=== PATIENT | male | born 1950 | race Caucasian/White ===

== ENCOUNTER 2016-08-25 07:29 | Observation (INO) | payer MEDICAID, MEDICARE ==
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
[~2016-08-25 07:29] MED LIST: Buffered Lidocaine 1% SYRIN* 3 ML/SYR SYRINGE INTRADERM ONE
[2016-08-25] MEDS ORDERED: ceFAZolin 2 GM PREMIX(*) 2 GM/50 ML BAG IVPB ONE ×2 (07:31)
[2016-08-25] MEDS ORDERED: Heparin VIAL(*) 5000 UNITS/ML VIAL (FIVE THOUSAND) ONE ×2 (07:31)
[2016-08-25] MEDS ORDERED: Midazolam* 1 MG/ML 2 ML VIAL (2 MG) ONE ×2 (09:07)
[2016-08-25] MEDS ORDERED: fentaNYL* 50 MCG/ML 2 ML VIAL (100 MCG VIAL) ONE ×6 (09:07→14:46)
[2016-08-25] MEDS ORDERED: Bupivacaine 0.5% W/EPI SDV* 30 ML VIAL ONE ×2 (09:30)
[2016-08-25] MEDS ORDERED: Lidocaine 1% INJ* 10 MG/ML 30 ML SDV ONE ×2 (09:30)
[2016-08-25] MEDS ORDERED: Cisatracurium* 2 MG/ML MDV 5 ML ONE ×2 (10:12)
[2016-08-25] MEDS ORDERED: Dexamethasone IV* 4 MG/ML 1 ML (4 MG) ONE ×2 (10:19)
[2016-08-25] MEDS ORDERED: Propofol* 10 MG/ML 20 ML BTL IV PUSH ONE ×2 (10:19)
[2016-08-25] MEDS ORDERED: Etomidate* 2 MG/ML 10 ML VIAL ONE ×2 (10:19)
[2016-08-25] MEDS ORDERED: Lidocaine 2% PF * 5 ML VIAL ONE ×2 (10:19)
[2016-08-25] MEDS ORDERED: Ondansetron INJ* 2 MG/ML VIAL ONE ×2 (10:19)
[2016-08-25] MEDS ORDERED: Succinylcholine* 20 MG/ML 10 ML VIAL ONE ×2 (10:19)
[2016-08-25] MEDS ORDERED: oxyCODONE/Acetamin 5/325 MG* TAB PO PRN (11:10)
[2016-08-25] MEDS ORDERED: Metoclopramide IV* 5 MG/ML 2 ML VIAL IV PRN (11:10)
[2016-08-25] MEDS ORDERED: HYDROmorphone* 1 MG/ML 1 ML SYR IV PRN (13:21)
[2016-08-25] MEDS ORDERED: Acetaminophen TAB* 325 MG PO PRN (13:21)
[2016-08-25] MEDS ORDERED: Docusate CAP* 100 MG PO PRN (13:21)
[2016-08-25] MEDS ORDERED: Ondansetron INJ* 2 MG/ML VIAL IV PRN (13:21)
[2016-08-25] MEDS ORDERED: HYDROmorphone* 1 MG/ML 1 ML SYR ONE ×2 (14:46)
[2016-08-25] MEDS: fentaNYL* 50 MCG/ML 2 ML VIAL (100 MCG VIAL) IV PRN ×3 (14:49→15:08)
[2016-08-25] MEDS: HYDROmorphone* 1 MG/ML 1 ML SYR IV PRN ×3 (14:50→15:09)
[2016-08-25] MEDS: oxyCODONE/Acetamin 5/325 MG* TAB PO PRN (20:04)
--- NOTE | 2016-08-26 06:25 | OP ---
DATE OF OPERATION: 08/25/16 - ROOM #333 DATE OF : 54 SURGEON: Teo Dobbs MD. CONTROL TOWER RADIO OPERATOR: GAYLE Kee. ANESTHESIOLOGIST: Es Rosas MD ANESTHESIA: General with local. PRE-OP DIAGNOSIS: Large left inguinal scrotal hernia, incarcerated. POST-OP DIAGNOSIS: Large incarcerated direct inguinal scrotal hernia. OPERATIVE PROCEDURE: Open repair with mesh of an incarcerated large left direct inguinal scrotal hernia. ESTIMATED BLOOD LOSS: Minimal. IV FLUIDS: 1.5 L of crystalloid. WOUND CLASSIFICATION: I. COMPLICATIONS: None. SPECIMENS: Portion of hernia sac. DRAINS: None. BRIEF HISTORY: Mr. Slade Yañez is a 66-year-old gentleman who has had a longstanding large left inguinal hernia extending down into the scrotum. He is now presenting for an elective repair. He had been cleared from a cardiac standpoint. The risks of, but not limited to , were all included and discussed with the patient and his partner in the preoperatively transcribed history and physical. Emphasized in the office was a higher risk of recurrence, problems with seroma and fluid collection into the scrotum, possibility of injury to the testicle, chronic groin pain, possibility that due to the large amount of possible intestine within the inguinal hernia, that reduction into the abdominal cavity may result in difficulty breathing, which may require further surgical intervention, i.e., laparotomy, were all discussed. DESCRIPTION OF PROCEDURE: Written informed consent was obtained. The left groin was marked with indelible ink and preoperative antibiotics were administered. The patient was taken to the operating room and placed in the supine position. Sequential compression devices and warming blanket were applied. General anesthesia was administered. A Ruiz catheter was inserted. The genitalia, groin, and upper thighs were prepped with Betadine. The upper abdomen was prepped entirely with chlorhexidine. The entire area was draped within the field and the overlying drape; however, it only encompassed the left groin for a typical hernia but we were prepared to manipulate the scrotum as well as possible entry into the abdominal cavity should we not be able to reduce the hernia or should there be other procedure needed to be performed. It should be noted that after the patient had been placed under general anesthesia, prior to making the initial incision, I was able to reduce the hernia successfully. Time-out verification was completed. An oblique incision was made several fingerbreadths above the inguinal crease, carried down through Bakari's fascia. We identified the external oblique aponeurosis, it was obvious a rather large hernia extending out through the external ring. The aponeurosis was opened in the direction of its fibers and we were able to encircle the cord structures and the hernia at the pubic tubercle with a 1/4-inch Judy drain. The external oblique aponeurosis was reflected more superiorly, exposing the conjoint tendon as well as the inguinal ligament inferiorly. We were able to then identify the spermatic cord and its contents and we did identify the ilioinguinal nerve. It appeared to be quite adherent to the hernia sac and I did sacrifice this nerve by dividing it as far lateral as possible in the musculature and far down in towards the scrotum. We were then able to identify and separate a very large inguinal hernia sac from the remainder of the spermatic cord. This reduced up nicely from below into the scrotum and we were able to follow this up into the direct space. This appeared to be a rather large direct space hernia. The vas deferens and the spermatic cord was identified and protected from injury throughout. There was a lipoma of the cord, which was from the cord structures up into the internal ring and divided. The internal ring did not appear to be patulous, it was of essentially normal caliber. Conjoint tendon also was of suitable strength and size. Decision was then made for repair. There was really no inguinal floor in the direct space and it was a rather large hernia sac. I was able to separate this and enter the preperitoneal space circumferentially around the base of the hernia sac and I was able to expose the pubic tubercle and Steve's ligament medially and as we were able to reduce the hernia sac, develop the preperitoneal space superiorly up underneath the musculature as well as laterally. I was able to identify the epigastric vessels and these were kept anteriorly and developed the peritoneal space with both a combination of blunt and sharp dissection out almost to the anterior iliac crest. I was able to identify the vas deferens as it came and entered the internal ring and this was kept posterior, so to speak, inferior to the mesh placement. Once this had been completed, the hernia sac was opened and I excised a significant portion of the redundant sac and this was closed with a pursestring 3-0 Polysorb suture and then placed back into the abdominal cavity. Next, with this preperitoneal space developed nicely, an extended sized Prolene hernia system mesh was then placed with the posterior leaf covering the tubercle and Steve's ligament medially and placed over the spermatic cord as it entered the internal ring intraabdominally underneath the musculature laterally as well as superiorly to cover the direst space. I tacked this using the CapSure device to the Steve's ligament as well and it covered nicely without wrinkling and I sutured the posterior portion of mesh as well to the inguinal ligament inferiorly at the shelving edge with several interrupted 3-0 Polysorb sutures. The anterior leaf of the mesh was then sutured to the pubic tubercle medially, the conjoint tendon superiorly, and the inguinal ligament inferiorly, and a slit was made laterally to permit the cord to exit the mesh into the internal ring. The mesh was then sutured to the musculature laterally with several interrupted 0 Polysorb sutures. The mesh seemed to cover nicely with no tension and it was secured. Hemostasis was assured. Additional Marcaine was infiltrated. The external oblique aponeurosis was closed with a running 0 Polysorb suture. Bakari's fascia was closed with interrupted 3-0 Polysorb suture. The skin was approximated with subcuticular 4-0 Polysorb suture. Steri-Strips and sterile dressings were applied. After the dressing was applied, the scrotum was evaluated, both testicles were in their expected position. No other abnormality noted. In addition, I was in the room as the patient was extubated. We were able to observe airway pressures and tidal volumes. At the completion of the case, he seemed to do well, breathing on his own with no significant evidence of increased intraabdominal pressure that may be expected with the loss of domain and he was taken to the recovery room in stable condition. CC: [facility]; JANELLE Ching, of [facility].* [id number]/CPS #: [id number] MTDD
[2016-08-26] MEDS: oxyCODONE/Acetamin 5/325 MG* TAB PO PRN (06:29)
[2016-08-26] MEDS ORDERED: Lisinopril TAB* 5 MG PO SCH (09:00)
[2016-08-26] MEDS ORDERED: Metoprolol Succinate XL TAB* 25 MG PO SCH ×2 (09:00→10:00)
--- NOTE | 2016-08-26 09:00 | PN ---
Progress Note - Progress Note SOAP: Subjective: Doing well Tolerating po without N/V Minimal incisional pain Urinating with catheter out Objective: Temp Pulse Resp BP Pulse Ox 97.6 F 78 18 102/64 92 08/26/16 07:43 08/26/16 07:43 08/26/16 07:43 08/26/16 07:43 08/26/16 07:43 Intake & Output 08/24/16 08/25/16 08/26/16 08/27/16 06:59 06:59 06:59 06:59 Intake Total 2200 Output Total 2525 Balance -325 Weight 149 lb 9.6 oz Intake: IV Fluids 1200 lr 1200 Oral 1000 Output: Ruiz 2525 Other: Estimated Blood Loss min Comment PEX: COmfortable Lungs are clear, breathing comfortably Abd is soft and slightly distended. Bowel sounds are present. Dressing left groin intact with minimal swelling. Scrotum without edema or hematoma-supporter in place. Assessment: POD#1 s/p repair of large left inguinalscrotal hernia with mesh Doing well with no signs of increased abdominal pressure. Plan: Ruiz out Advance diet D/C home today.
[2016-08-26 12:34] VITALS: BP 98/56
--- NOTE | 2016-08-28 11:17 | DS ---
CC: [facility] [employer]DROCHL[employer] OPERATOR; Gio Nance NP DATE OF ADMISSION: 08/25/2016. DATE OF DISCHARGE: 08/26/2016. DATE OF DICTATION: 08/28/2016. PRINCIPAL DIAGNOSIS: Large left inguinal scrotal hernia. PROCEDURE: Open repair of a large direct inguinal scrotal hernia with mesh. CONDITION ON DISCHARGE: Good. DISPOSITION: To home. HISTORY OF PRESENT ILLNESS: Mr. Slade Yañez is a 66-year-old gentleman who had a long-standing large left inguinal scrotal hernia extending with a large amount of bowel down into the scrotum, whi ch was not able to be reduced. After medical evaluation and review of his physical and history, he was planned for an elective open repair of his left inguinal hernia. Plans were for admission postoperatively due to the fact that there was concern for possible loss of domain and he needed observation, as well as planned analgesia. HOSPITAL COURSE: The patient presented on the morning of admission and underwent an uneventful open left direct inguinal hernia repair with mesh and was placed in the preperitoneal position through a n open approach. He did well and postoperatively had no problems with abdominal pressures or respir atory issues from possible compartment syndrome. He was observed on the regular nursing floor. t was advanced as tolerated. On postop day number one, he was tolerating liquids. His pain was adequately controlled. Abdomen w as soft and nondistended. He had no nausea or vomiting and was discharge home with appropriate surg ical follow-up. [id number]/[facility] [place] #: [id number]
== END 2016-08-26 13:00 | disposition home or self-care (01) ==
LOC: OR 07:29 → SSU 15:29
PROVIDERS: ADMIT Surgery; ATTEND Surgery
DX: K40.30 Unilateral inguinal hernia, with obstruction, without gangrene, not specified as recurrent (principal)
CPT/HCPCS: 88302; 96374; A9270-GY; C1781; G0378; J0330; J0690; J1100; J1170; J1644; J2001; J2250; J2405; J2704; J3010

== ENCOUNTER 2024-01-20 14:34 | Inpatient (IN) ==
[2024-01-20] MEDS: Lactated Ringers 1000 ml BAG 1,000 ML IV ONE ×2 (16:20→21:07)
[2024-01-20 16:42] LABS: ABS Basophils 0.1 10^3/uL (0.0-0.1); ABS Eosinophils 0.1 10^3/uL (0.0-0.5); ABS Lymphocytes 1.3 10^3/uL (1.0-4.8); ABS Monocytes 1.2 10^3/uL (0.0-1.1); ABS Neutrophils 18.3 10^3/uL (1.5-7.6); ABS Nucleated RBC 0.01 10^3/ul; Eosinophil % 0.3 %; Hematocrit 33.1 % (38-53); Hemoglobin 10.7 g/dL (13.2-16.3); Lymphocyte % 6.2 %; Mean Corpuscular Hemoglobin 24.8 pg (27-33); Mean Corpuscular Hgb Conc 32.2 g/dL (31-36); Mean Corpuscular Volume 77.2 fL (80-97); Mean Platelet Volume 6.7 fL (7.5-11.2); Platelet Count 503 10^3/uL (150-450); Red Blood Count 4.29 10^6/uL (4.06-5.63); Red Cell Distribution Width 16.7 % (12-17)
[2024-01-20 16:58] LABS: Activated Partial Thrombo Time 28.1 seconds (26.0-38.0); INR 1.09 (0.85-1.14)
[2024-01-20 17:10] LABS: C Reactive Protein 86.27 mg/L (<8.01); Calcium 9.2 mg/dL (8.6-10.3); Creatinine, Serum 0.66 mg/dL (0.67-1.17); Globulin 3.1 g/dL (2-4); Potassium 4.9 mmol/L (3.5-5.0); Total Bilirubin 0.6 mg/dL (0.2-1.0); Total Protein 6.1 g/dL (6.4-8.9); eGFR CKD-EPI 100.3 (>60)
[2024-01-20] MEDS ORDERED: Vancomycin 1,000 MG BAG/ADDV ONE (17:20)
[2024-01-20] MEDS: Piperacillin/Tazobac 3.375 BAG 3.375 GM/100 ML BAG IV ONE (17:39)
[2024-01-20 18:21] LABS: High Sensitivity Troponin 1 Hr 8 pg/mL (<20)
[2024-01-20] MEDS: Iohexol 350 (CONTRAST) 500 ML MDV IV ONE (18:32)
[2024-01-20] MEDS: Vancomycin 1,000 MG in NS 0.9% 250 ml 250 ML IVPB ONE (18:47)
[2024-01-20 21:51] LABS: Urine Appearance Extra Turbid; Urine Bilirubin Negative (Negative); Urine Blood Trace (Negative); Urine Glucose Negative (Negative); Urine Ketones Negative (Negative); Urine Nitrite 2+ (Negative); Urine Protein 1+ (>=30 mg/dL) (Negative); Urine Specific Gravity 1.034 (1.002-1.030); Urine Urobilinogen 1+ (Negative)
[2024-01-20 21:57] LABS: Urine Amorphous Crystals Present /HPF (Absent); Urine Bacteria 2+ /HPF (Absent); Urine Color Yellow; Urine Red Blood Cell 1+(3-5/hpf) /HPF (0-Trace); Urine White Blood Cell 3+(>20/hpf) /HPF (0-Trace)
[2024-01-20] MEDS: Lactated Ringers 1000 ml BAG 1,000 ML IV SCH (22:53)
[2024-01-20] MEDS ORDERED: Zosyn per Pharmacy NOTE FOLLOW UP SCH (23:45)
[2024-01-21] MEDS: Zosyn 3.375 GM IV - ED ONCE IV ONE (01:10)
[2024-01-21] MEDS: Enoxaparin 40 MG/0.4 ML SYR SUBCUT SCH ×2 (06:16→08:05)
[2024-01-21] MEDS: ZOSYN 3.375 GM Q8H per EXTENDED INFUSION IV SCH (06:19)
[2024-01-21] MEDS: cefTRIAXone 1 gm/50 mL D5W 1 GM/50 ML BAG IV SCH (11:30)
[2024-01-21] MEDS ORDERED: Nicotine GUM 2MG FRUIT FLAVOR PO PRN (11:47)
[2024-01-21 12:26] LABS: Urine Benzodiazepine Screen None Detected (None Detect); Urine Cannabinoids Screen None Detected (None Detect); Urine Opiates Screen None Detected (None Detect)
[2024-01-21] MEDS: Nicotine PATCH 14 MG/24 HR PATCH TRANSDERM SCH (12:55)
[2024-01-21 16:14] LABS: ABS Basophils 0.1 10^3/uL (0.0-0.1); ABS Eosinophils 0.2 10^3/uL (0.0-0.5); ABS Lymphocytes 1.3 10^3/uL (1.0-4.8); ABS Monocytes 0.6 10^3/uL (0.0-1.1); ABS Neutrophils 10.1 10^3/uL (1.5-7.6); Eosinophil % 1.3 %; Hemoglobin 9.3 g/dL (13.2-16.3); Lymphocyte % 10.7 %; Mean Corpuscular Hemoglobin 25.5 pg (27-33); Mean Corpuscular Hgb Conc 33.1 g/dL (31-36); Mean Corpuscular Volume 77.1 fL (80-97); Mean Platelet Volume 6.6 fL (7.5-11.2); Platelet Count 405 10^3/uL (150-450); Red Blood Count 3.64 10^6/uL (4.06-5.63); Red Cell Distribution Width 16.5 % (12-17); White Blood Count 12.2 10^3/uL (3.6-10.2)
[2024-01-21 17:02] LABS: % Iron Saturation 10 % (15-55); .Transferrin 141 mg/dL (203-362); Anion Gap 7 mmol/L (2-16); Blood Urea Nitrogen 13 mg/dL (6-24); CO2 Carbon Dioxide 27 mmol/L (22-32); Chloride 102 mmol/L (101-111); Creatinine, Serum 0.85 mg/dL (0.67-1.17); Glucose 103 mg/dL (70-100); Iron < 20 ug/dL (50-212); Magnesium 2.2 mg/dL (1.9-2.7); Potassium 3.9 mmol/L (3.5-5.0); Sodium 136 mmol/L (135-145); Total Iron Binding Capacity 197 mcg/dL (250-450); Unsaturated Iron Binding 177 ug/dL; eGFR CKD-EPI 92.9 (>60)
[2024-01-21 17:10] LABS: PSA Screen Ultra Sensitive 2.199 ng/mL (0-4.000)
[2024-01-21 17:11] LABS: TSH Ultra Thyroid Stim Horm 5.45 mcIU/mL (0.34-5.60)
[2024-01-21 17:19] LABS: Ferritin 274.8 ng/mL (24-336)
[2024-01-21 17:22] LABS: Folate 6.65 ng/mL (5.90-24.80)
[2024-01-21 17:23] LABS: Vitamin B12 151 pg/mL (180-914)
[2024-01-21 19:39] LABS: Carcinoembryonic Antigen 2.4 ng/mL (0.1-5.0)
[2024-01-21] MEDS: PEG 3000 GI LAVAGE 1 GALLON PO ONE (20:08)
[2024-01-21] MEDS: Cyanocobalamin INJ 1,000 MCG/ML VIAL 1 ML VIAL IM SCH (20:09)
[2024-01-22 07:51] LABS: Hematocrit 28.2 % (38-53); Hemoglobin 9.5 g/dL (13.2-16.3); Mean Corpuscular Hemoglobin 25.9 pg (27-33); Mean Corpuscular Hgb Conc 33.8 g/dL (31-36); Mean Corpuscular Volume 76.7 fL (80-97); Mean Platelet Volume 6.6 fL (7.5-11.2); Platelet Count 403 10^3/uL (150-450); Red Blood Count 3.68 10^6/uL (4.06-5.63); Red Cell Distribution Width 16.4 % (12-17); White Blood Count 10.8 10^3/uL (3.6-10.2)
[2024-01-22 08:15] LABS: Calcium 8.3 mg/dL (8.6-10.3); Creatinine, Serum 0.65 mg/dL (0.67-1.17); Magnesium 2.2 mg/dL (1.9-2.7); eGFR CKD-EPI 100.7 (>60)
[2024-01-22] MEDS ORDERED: Phenylephrine 40 mcg/mL 10mL (400mcg) SYRINGE ONE ×2 (11:44→11:57)
[2024-01-22] MEDS: cefTRIAXone 1 gm/50 mL D5W 1 GM/50 ML BAG IV SCH (14:19)
[2024-01-22] MEDS: Lactated Ringers 1000 ml BAG 1,000 ML IV SCH (14:20)
[2024-01-22] MEDS: Nicotine PATCH 21 MG/24 HR PATCH TRANSDERM SCH (14:29)
[2024-01-22] MEDS: Ferric Gluconate IV 125 MG in NS 0.9% 100 ml BAG 100 ML IVPB SCH (21:41)
[2024-01-23] MEDS: Ferric Gluconate IV 125 MG in NS 0.9% 100 ml BAG 100 ML IVPB SCH (01:53)
[2024-01-23] MEDS ORDERED: Nicotine PATCH 21 MG/24 HR PATCH TRANSDERM SCH (08:00)
[2024-01-23 13:01] LABS: Hematocrit 30.7 % (38-53); Hemoglobin 9.8 g/dL (13.2-16.3); Mean Corpuscular Hemoglobin 24.4 pg (27-33); Mean Corpuscular Hgb Conc 31.8 g/dL (31-36); Mean Corpuscular Volume 76.8 fL (80-97); Mean Platelet Volume 6.7 fL (7.5-11.2); Platelet Count 466 10^3/uL (150-450); Red Cell Distribution Width 16.2 % (12-17); White Blood Count 13.1 10^3/uL (3.6-10.2)
[2024-01-23 14:06] LABS: Calcium 8.2 mg/dL (8.6-10.3); Creatinine, Serum 0.63 mg/dL (0.67-1.17); Magnesium 2.2 mg/dL (1.9-2.7); Potassium 4.3 mmol/L (3.5-5.0); eGFR CKD-EPI 101.7 (>60)
[2024-01-24 10:55] LABS: ABS Basophils 0.1 10^3/uL (0.0-0.1); ABS Eosinophils 0.2 10^3/uL (0.0-0.5); ABS Lymphocytes 1.2 10^3/uL (1.0-4.8); ABS Monocytes 0.6 10^3/uL (0.0-1.1); ABS Neutrophils 10.4 10^3/uL (1.5-7.6); Eosinophil % 1.8 %; Hematocrit 30.9 % (38-53); Hemoglobin 10.1 g/dL (13.2-16.3); Lymphocyte % 9.5 %; Mean Corpuscular Hemoglobin 25.2 pg (27-33); Mean Corpuscular Hgb Conc 32.7 g/dL (31-36); Mean Corpuscular Volume 77.2 fL (80-97); Mean Platelet Volume 6.7 fL (7.5-11.2); Platelet Count 465 10^3/uL (150-450); Red Cell Distribution Width 16.5 % (12-17); White Blood Count 12.5 10^3/uL (3.6-10.2)
[2024-01-24 11:24] LABS: Calcium 8.5 mg/dL (8.6-10.3); Creatinine, Serum 0.58 mg/dL (0.67-1.17); eGFR CKD-EPI 104.3 (>60)
[2024-01-24] MEDS: Cyanocobalamin INJ 1,000 MCG/ML VIAL 1 ML VIAL IM ONE (22:45)
[2024-01-26] MEDS: Ferric Gluconate IV 125 MG in NS 0.9% 100 ml BAG 100 ML IVPB ONE (12:57)
[2024-01-28] MEDS: Enoxaparin 40 MG/0.4 ML SYR SUBCUT ONE (17:29)
[2024-01-30 10:36] LABS: ABS Basophils 0.1 10^3/uL (0.0-0.1); ABS Eosinophils 0.1 10^3/uL (0.0-0.5); ABS Lymphocytes 1.4 10^3/uL (1.0-4.8); ABS Neutrophils 10.6 10^3/uL (1.5-7.6); ABS Nucleated RBC 0.01 10^3/ul; Eosinophil % 1.1 %; Hemoglobin 10.3 g/dL (13.2-16.3); Lymphocyte % 10.6 %; Mean Corpuscular Hemoglobin 24.6 pg (27-33); Mean Platelet Volume 6.3 fL (7.5-11.2); Nucleated Red Blood Cells % 0.1 %/100WBC (0.0-0.8); Platelet Count 437 10^3/uL (150-450); Red Blood Count 4.16 10^6/uL (4.06-5.63); Red Cell Distribution Width 17.6 % (12-17); White Blood Count 13.3 10^3/uL (3.6-10.2)
[2024-01-30 11:24] LABS: Calcium 9.1 mg/dL (8.6-10.3); Creatinine, Serum 0.65 mg/dL (0.67-1.17); Magnesium 2.4 mg/dL (1.9-2.7); Potassium 4.9 mmol/L (3.5-5.0); eGFR CKD-EPI 100.7 (>60)
[2024-02-01 06:40] LABS: Hematocrit 30.8 % (38-53); Hemoglobin 9.9 g/dL (13.2-16.3); Mean Corpuscular Hemoglobin 24.7 pg (27-33); Mean Corpuscular Hgb Conc 32.1 g/dL (31-36); Mean Platelet Volume 6.6 fL (7.5-11.2); Platelet Count 375 10^3/uL (150-450); Red Blood Count 4.01 10^6/uL (4.06-5.63); Red Cell Distribution Width 17.4 % (12-17); White Blood Count 14.2 10^3/uL (3.6-10.2)
[2024-02-01 06:56] LABS: Calcium 9.1 mg/dL (8.6-10.3); Creatinine, Serum 0.64 mg/dL (0.67-1.17); Potassium 4.6 mmol/L (3.5-5.0); eGFR CKD-EPI 101.2 (>60)
[2024-02-01 08:07] LABS: Rapid COVID-19 Molecular Undetected (Undetected)
[2024-02-01 09:24] VITALS: BP 101/69
== END 2024-02-01 11:40 | disposition home health service (06) | DRG 871 ==
LOC: ED 14:34 → EDHOLD 14:34 → SUATTDRO 22:25 → MEDTELE 01-21 01:07 → MED 01-21 01:37 → SUATTDRO 01-22 11:25
PROVIDERS: ADMIT Student in an Organized Health Care Education/Training Program; ATTEND Hospitalist
PROC: O.GIFSC (2024-01-22 11:05)